=== PATIENT | male | born 1960 | race African-American/Black ===

== ENCOUNTER 2019-01-20 14:31 | Emergency (ER) | payer OTHER ==
[~2019-01-20] VITALS: Ht 188 cm; Wt 99.8 kg
--- NOTE | 2019-01-20 14:40 | Emergency Room Report ---
History of Present Illness General Chief Complaint: Overdose Source: Patient Present Illness HPI Disclaimer: Please note that this report is being documented using DRAGON technology. This can lead to erroneous entry secondary to incorrect interpretation by the dictating instrument. HPI: This is a 58-year-old male with a history of polysubstance abuse presenting by EMS for evaluation after an apparent "spice" overdose. The patient states that he was in his usual state of health this morning and smoked one joint of synthetic marijuana (spice) at approximately 11:30 AM. He was found wandering outside of a salon on [facility] looking as he might fall over and EMS was notified. They found him stumbling around but in no acute distress. He was awake and alert. He admitted to smoking spice earlier this day and denied any other drug or alcohol use. He denied fall, loss of consciousness, vomiting or any other symptoms. They found him slightly hypotensive with systolic pressures in the low 90s. He was not complaining of chest pain or other complaints and continues to deny them. He states that he was previously using multiple drugs especially cocaine but now only smokes spice occasionally. He currently denies any headache, visual changes, sore throat, chest pain, palpitations, shortness of breath, cough, nausea, vomiting, abdominal pain, dysuria, hematuria, new skin rash or other changes in his health. He would like to be discharged quickly after medical evaluation as he states he must be at work later this evening. PMH: Substance abuse PSH: Denies Allergies: Denies Social Hx: Occasional alcohol use, occasional spice use, former cocaine use, occasional tobacco use Allergies: Coded Allergies: No Known Allergies (Unverified , 01/20/19) Nursing Documentation-PMH Past Medical History: No Stated History Review of Systems All Other Systems: negative except mentioned in HPI Physical Exam Vital Signs Date Time Temp Pulse Resp B/P (MAP) Pulse Ox O2 Delivery O2 Flow Rate FiO2 01/20/19 14:27 66 16 95/58 (70) 99 Room Air General: Awake and alert, no acute distress HEENT: NC/AT. EOMI. PERRLA, anicteric sclera. Moist mucous membranes Neck: Supple, trachea midline Chest Wall: No tenderness, no deformity Cardiovascular: RRR. S1 and S2 normal. No murmur appreciated Resp: Normal work of breathing. No cough, wheezing or crackles appreciated Abdomen: Abdomen is soft, nondistended. Nontender Skin: Intact. No abrasions, laceration or rash over the exposed skin. There is a well-healed scar over the left forehead. Some scars over the forearms bilaterally that are well-healed. MSK: Normal tone and bulk. Moving all extremities. No obvious deformity. Neuro: Awake and alert. Oriented to self, place, situation and time. Mentating appropriately. No ataxia. Moving all extremities. Medical Decision Making Diagnostic Impression: Primary Impression: Substance abuse Additional Impression: Amphetamine abuse ER Course 58-year-old male presents for evaluation after ingestion of synthetic cannabinoid earlier today. He is awake, alert, no acute distress, intact neurologic exam. Heart rate is normal though he is slightly hypotensive for size with systolic pressures in the mid 90s. Core temperature is normal. Will obtain labs including tox screen and given IV fluid bolus. He is in no acute distress otherwise and appears well, neurologically intact and does not appear intoxicated. If labs are unremarkable and patient is able to safely ambulate he may be discharged home. Laboratory Tests Test 01/20/19 14:48 01/20/19 15:10 01/20/19 15:30 Sodium Level 139 MMOL/L (136-145) Potassium Level 3.8 MMOL/L (3.5-5.1) Chloride Level 106 MMOL/L (98-107) Carbon Dioxide Level 27 MMOL/L (21-32) Anion Gap 6 mmol/L (5-15) Blood Urea Nitrogen 13 mg/dL (7-18) Creatinine 0.9 MG/DL (0.55-1.30) Estimate Glomerular Filtration Rate > 60 mL/min (>60) Glucose Level 162 MG/DL (74-106) H Calcium Level 8.9 MG/DL (8.5-10.1) Total Bilirubin 0.4 MG/DL (0.2-1.0) Aspartate Amino Transferase (AST) 24 U/L (15-37) Alanine Aminotransferase (ALT) 22 U/L (12-78) Alkaline Phosphatase 29 U/L (46-116) L Total Creatine Kinase 437 U/L (26-308) H Creatine Kinase MB 2.8 NG/ML (0.0-3.6) Creatine Kinase MB Relative Index 0.6 Total Protein 6.9 G/DL (6.4-8.2) Albumin 3.4 G/DL (3.4-5.0) Globulin 3.5 g/dL Albumin/Globulin Ratio 1.0 (1.0-2.7) Salicylates Level 1.4 ug/mL (2.8-20) L Acetaminophen Level < 2 MCG/ML (10-30) L Serum Alcohol < 3 mg/dL Urine Opiates Screen Negative (NEGATIVE) Urine Barbiturates Screen Negative (NEGATIVE) Phencyclidine (PCP) Screen Negative (NEGATIVE) Urine Amphetamines Screen Positive (NEGATIVE) H Urine Benzodiazepines Screen Negative (NEGATIVE) Urine Cocaine Screen Negative (NEGATIVE) Urine Marijuana (THC) Screen Positive (NEGATIVE) H White Blood Count 2.9 K/UL (4.8-10.8) L Red Blood Count 4.60 M/UL (4.70-6.10) L Hemoglobin 14.1 G/DL (14.2-18.0) L Hematocrit 40.8 % (42.0-52.0) L Mean Corpuscular Volume 89 FL (80-99) Mean Corpuscular Hemoglobin 30.6 PG (27.0-31.0) Mean Corpuscular Hemoglobin Concent 34.5 G/DL (32.0-36.0) Red Cell Distribution Width 11.6 % (11.6-14.8) Platelet Count 206 K/UL (150-450) Mean Platelet Volume 6.6 FL (6.5-10.1) Neutrophils (%) (Auto) % (45.0-75.0) Lymphocytes (%) (Auto) % (20.0-45.0) Monocytes (%) (Auto) % (1.0-10.0) Eosinophils (%) (Auto) % (0.0-3.0) Basophils (%) (Auto) % (0.0-2.0) Neutrophils % (Manual) Pending Lymphocytes % (Manual) Pending Platelet Estimate Pending Platelet Morphology Pending EKG Diagnostic Results EKG Time: 14:50 Rate: normal Rhythm: NSR ST Segments: no acute changes Other Impression 1st degree block, MA interval 208 ms. Otherwise sinus rhythm, normal axis, normal QRS, normal QTC, no acute ischemic changes. Rhythm Strip Diag. Results Rhythm Strip Time: 14:50 EP Interpretation: yes Rate: 60s Rhythm: NSR Reevaluation Time: 16:01 Last Vital Signs Date Time Temp Pulse Resp B/P (MAP) Pulse Ox O2 Delivery O2 Flow Rate FiO2 01/20/19 14:27 66 16 95/58 (70) 99 Room Air Status: improved Reevaluation Impression Labs have returned largely unremarkable aside from positive findings on amphetamines and THC on the urine tox screen. No evidence of rhabdomyolysis or other significant pathology on labs. The patient is feeling improved, pressures are increased after receiving 1 IV fluid bolus and he was requesting discharge home. We will provide him with resources to follow-up for substance abuse however at this time he is denying any suicidality, is otherwise well, is mentating appropriately and appears to have capacity to make his own decisions. He will be discharged home with close follow-up at clinic and he was advised to return to the emergency department should she have any issues with drug or alcohol abuse. He understands and agrees with this treatment plan will be discharged home. Disposition: HOME, SELF-CARE Condition: Improved Scripts Unable to Obtain Active Prescriptions or Reported Meds Dillon Bowles MD Jan 20, 2019 14:40
--- NOTE | 2019-01-20 15:00 | NUR ---
. ED Nurse Note: kassandra briceno done pt denies any pain states he has smoked spice . awaiting orders
[2019-01-20 15:08] LABS: ANION GAP 6 mmol/L (5-15); BLOOD UREA NITROGEN 13 mg/dL (7-18); CALCIUM 8.9 MG/DL (8.5-10.1); CARBON DIOXIDE 27 MMOL/L (21-32); CHLORIDE 106 MMOL/L (98-107); CREATININE 0.9 MG/DL (0.55-1.30); POTASSIUM 3.8 MMOL/L (3.5-5.1); SODIUM 139 MMOL/L (136-145)
[2019-01-20 15:20] LABS: ALANINE AMINOTRANSFERASE 22 U/L (12-78); ALBUMIN 3.4 G/DL (3.4-5.0); ALKALINE PHOSPHATASE 29 U/L (46-116); ASPARTATE AMINO TRANSFERASE 24 U/L (15-37); BILIRUBIN,TOTAL 0.4 MG/DL (0.2-1.0); CKMB 2.8 NG/ML (0.0-3.6); CREATINE KINASE 437 U/L (26-308)
--- NOTE | 2019-01-20 15:30 | NUR ---
ED Nurse Note: blood and urine sent pt on monitor sleeping. Easily arouseable.
[2019-01-20 15:48] LABS: HEMATOCRIT 40.8 % (42.0-52.0); HEMOGLOBIN 14.1 G/DL (14.2-18.0); MEAN CORPUSCULAR VOLUME 89 FL (80-99); PLATELET COUNT 206 K/UL (150-450); RED CELL DISTRIBUTION WIDTH 11.6 % (11.6-14.8); WHITE BLOOD COUNT 2.9 K/UL (4.8-10.8)
--- NOTE | 2019-01-20 16:15 | NUR ---
ER DISCHARGE NOTE: Patient is cleared to be discharged per ERMD, pt is aox4, on room air, with stable vital signs. pt was given dc instructions, pt was able to verbalize understanding, pt id band and iv site removed without complications. pt is able to ambulate with steady gait. pt took all belongings.
[2019-01-20 17:56] VITALS: BP 95/58
--- NOTE | 2019-01-22 12:57 | Cardiology Report ---
APPROVED REPORT EKG Measurement Heart [id number] Normal sinus rhythm Anterior infarct, age undetermined Abnormal ECG
== END 2019-01-20 16:15 | disposition home or self-care (01) ==
LOC: EDBD 14:31 → EMR 15:00
DX: F15.10 Other stimulant abuse, uncomplicated (principal); F19.10 Other psychoactive substance abuse, uncomplicated; I95.9 Hypotension, unspecified
CPT/HCPCS: 36415; 80053; 80307; 80329; 82550; 82553; 85007; 85025; 93005; 96360; 99284